=== PATIENT | male | born 1995 | race Two or more races ===

== ENCOUNTER 2020-11-19 21:52 | Emergency (ER) | payer OTHER ==
[~2020-11-19] VITALS: Ht 165.1 cm; Wt 68.0 kg
[2020-11-19] MEDS ORDERED: CIPRO500 MG PO (23:01)
== END 2020-11-20 00:12 | disposition home or self-care (01) ==
LOC: ER 21:52
DX: S61.52 Laceration with foreign body of wrist (principal); M25.532 Pain in left wrist; W25.XXXD Contact with sharp glass, subsequent encounter; Y93.89 Activity, other specified; Y92.89 Other specified places as the place of occurrence of the external cause; Y99.8 Other external cause status